=== PATIENT | female | born 1970 | race Two or more races ===

== ENCOUNTER 2018-06-15 00:18 | Emergency (ER) | payer OTHER ==
[~2018-06-15] VITALS: Ht 170.2 cm; Wt 114.0 kg
[2018-06-15 00:20] VITALS: BP 132/90
[2018-06-15] MEDS ORDERED: LIDOCAINE-MPF 1%, 2ML ONE (00:36)
[2018-06-15] MEDS ORDERED: LIDOCAINE 1%, 10ML INFIL ONE (01:00)
[2018-06-15] MEDS ORDERED: BACITRACIN ZINC OINT 500U/GM, 0.9 GM ONE (01:20)
[2018-06-15] MEDS ORDERED: AMOXICILLIN/CLAV 875-125MG TABLET PO STA (01:24)
[2018-06-15] MEDS ORDERED: DIPH,PERTUSS(ACELL),TET VAC/PF 0.5 ML IM-VACC ONE ×2 (01:30→01:31)
[2018-06-15] MEDS ORDERED: AMOXICILLIN/CLAV 875-125MG TABLET ONE (01:31)
== END 2018-06-15 01:48 | disposition home or self-care (01) ==
LOC: ED 00:41
DX: S61.511A Laceration without foreign body of right wrist, initial encounter (principal); S51.831A Puncture wound without foreign body of right forearm, initial encounter; S81.031A Puncture wound without foreign body, right knee, initial encounter; W54.0XXA Bitten by dog, initial encounter; Y93.89 Activity, other specified; Y92.89 Other specified places as the place of occurrence of the external cause; Y99.8 Other external cause status
CPT/HCPCS: 12002; 90471; 90715; 99283